=== PATIENT | female | born 1965 | race Caucasian/White ===

== ENCOUNTER → 2016-11-19 | Outpatient (CLI) | payer OTHER ==
--- NOTE | 2016-11-19 15:06 | US ---
EXAMINATION TYPE: US thyroid st tissue head/neck DATE OF EXAM: 11/19/2016 1:51 PM COMPARISON: NONE CLINICAL HISTORY: L04.0 Enlarged Lymph node.Patient noticed swelling on left side of neck under yohana ble this morning. TECHNOLOGIST IMPRESSION: Submandibular gland seen and appears wnl, no obvious lymph nodes were at si te of patients complaint. No worrisome solid or cystic mass or abnormal fluid collection is seen at level palpable abnormality left submandibular region. IMPRESSION: As above.
--- NOTE | 2016-11-20 06:57 | MM ---
Reason for exam: clinical finding. Last mammogram was performed 11 months ago. History: Patient has history of breast cancer at age 48 and is nulliparous. Family history of breast cancer in maternal aunt at age 50 and breast cancer in maternal cousin at age 45. Radiation therapy, June 2014. MG discontinued stereo core RT of the right breast, April 20, 2014. Malignant MG pre op needle loc LT of the left breast, March 13, 2014. Chemotherapy, January 2014. Benign US RT VAD breast biopsy of the right breast, October 31, 2013. Malignant US LT VAD breast biopsy of the left breast, September 12, 2013. Taking tamoxifen beginning at age 48. Physical Findings: Nurse Summary: reddened left breast (nurse dw). MG Diagnostic Mammo w CAD RAGINI Bilateral CC and MLO view(s) were taken. XCCL view(s) were taken of the left breast. Prior study comparison: December 06, 2015, bilateral MG 3d diag mammo w/cad RAGINI. December 04, 2014, bilateral MG diagnostic mammo w CAD RAGINI. There are scattered fibroglandular densities. Finding: Architectural distortion in the upper outer quadrant, posterior position of the left breast with new spiculated lesion. Previous mammotome biopsy in the right breast. Moderate left skin thickening. These results were verbally communicated with the patient and result sheet given to the patient on 11/19/16. ASSESSMENT: Incomplete: need additional imaging evaluation, BI-RAD 0 RECOMMENDATION: Ultrasound of the left breast.
--- NOTE | 2016-11-20 06:58 | USB ---
Reason for exam: additional evaluation requested from abnormal screening. History: Patient has history of breast cancer at age 48 and is nulliparous. Family history of breast cancer in maternal aunt at age 50 and breast cancer in maternal cousin at age 45. Radiation therapy, June 2014. MG discontinued stereo core RT of the right breast, April 20, 2014. Malignant MG pre op needle loc LT of the left breast, March 13, 2014. Chemotherapy, January 2014. Benign US RT VAD breast biopsy of the right breast, October 31, 2013. Malignant US LT VAD breast biopsy of the left breast, September 12, 2013. Taking tamoxifen beginning at age 48. US Breast Limited LT Left breast ultrasound demonstrates a 2.0 x 2.3cm irregular shadowing area at scar at 1 o'clock. These results were verbally communicated with the patient and result sheet given to the patient on 11/19/16. ASSESSMENT: Suspicious, BI-RAD 4 RECOMMENDATION: Surgical consultation and ultrasound core biopsy of the left breast. Called Dr. Mae with mammographic findings and has scheduled an appointment for the patient for 11/21/16 at 10:[address] Mann. PRELIMINARY REPORT CALLED AND FAXED TO DR. MANN ON 11/20/16 AT 700/TP.
== END | disposition home or self-care (01) ==
LOC: RADMAMWWP 13:41
PROVIDERS: ATTEND Family Medicine
DX: R92.2 Inconclusive mammogram (principal); R92.8 Other abnormal and inconclusive findings on diagnostic imaging of breast
CPT/HCPCS: 76536; 76642; G0204; 80053; 80061; 85025; 85652

== ENCOUNTER → 2016-11-21 | Day surgery (SDC) | payer OTHER ==
[~2016-11-21] MED LIST: BACITRACIN OINT 1 EACH PACKET TOPICAL ONE; LIDOCAINE 1% INJ 10MG/ML (20 ML MDV) ONE; SODIUM BICARB 4% 5 ML VIAL (0.48 MEQ/ML) ONE
--- NOTE | 2016-11-21 12:28 | USB ---
EXAMINATION TYPE: US biopsy breast VAD LT, MG diagnostic mammo LT wo CAD DATE OF EXAM: 11/21/2016 10:40 AM CLINICAL HISTORY: R92.8 Abn Mammogram. TECHNIQUE: Ultrasound guided core biopsy of left 1:00 breast. COMPARISON: NONE FINDINGS: The procedure of ultrasound guided core biopsy was explained to the patient. Benefits, alternatives, and risks were discussed. An informed consent was then obtained. The patient was placed in supine positioning for imaging and for the procedure. The overlying skin was prepped and draped in usual sterile fashion. Lidocaine buffered with bicarbonate was used as anesthetic into the skin and subcutaneous tissue up to area of concern in the left 1:00 breast. A chino was made with surgical scalpel. Under ultrasound guidance, a 12-gauge vacuum assisted biopsy gun device was used to obtain by core samples. Following this, a biopsy clip was left in lesion. Mammogram demonstrates proper deployment of microclip. The patient tolerated the procedure well without any immediate complication. The patient was kept in the radiology department for short stay after the procedure and then discharged home in stable condition. IMPRESSION: Successful, uncomplicated ultrasound guided core biopsy of area of concern in the left 1:00 breast, full pathology results to follow. Pathology Results: Benign BREAST, LEFT, CORE BIOPSY: SCAR/FIBROSIS. NEGATIVE FOR MALIGNANCY. Recommendation Follow up mammogram of the left breast in 6 months. SHUKRI
== END ==
LOC: RADUSWWP 09:20
PROVIDERS: ATTEND Surgery
DX: L90.5 Scar conditions and fibrosis of skin (principal); R92.8 Other abnormal and inconclusive findings on diagnostic imaging of breast; Z85.3 Personal history of malignant neoplasm of breast; Z92.21 Personal history of antineoplastic chemotherapy
CPT/HCPCS: 88305; 19083; G0206; A4648; J2001

== ENCOUNTER → 2017-05-18 | Outpatient (CLI) | payer OTHER ==
[2017-05-18 14:46] LABS: Anion Gap 9 mmol/L; Blood Urea Nitrogen 13 mg/dL (7-17); Carbon Dioxide 26 mmol/L (22-30); Chloride 108 mmol/L (98-107); Glucose 83 mg/dL (74-99); Non-African American GFR(MDRD) >60 (>60 ml/min/1.73 sqM); Potassium 4.1 mmol/L (3.5-5.1); Sodium 143 mmol/L (137-145)
[2017-05-18 14:48] LABS: Basophils % (A) 1 %; CH 29.4; CHCM 32.9; Eosinophils # (A) 0.1 k/uL (0-0.7); Eosinophils % (A) 3 %; HCT 38.8 % (34.0-46.0); HGB 12.4 gm/dL (11.4-16.0); Luc # (Auto) 0.14; Luc % (Auto) 3; Lymphocytes # (A) 1.5 k/uL (1.0-4.8); Lymphocytes % (A) 33 %; MCH 28.6 pg (25.0-35.0); MCHC 31.8 g/dL (31.0-37.0); MCV 89.8 fL (80.0-100.0); Mean Platelet Volume 6.9; Monocytes # (A) 0.2 k/uL (0-1.0); Monocytes % (A) 5 %; Neutrophils # (A) 2.4 k/uL (1.3-7.7); Neutrophils % (A) 55 %; RBC 4.33 m/uL (3.80-5.40); RDW 14.5 % (11.5-15.5); WBC 4.3 k/uL (3.8-10.6); WBC (Perox) 4.51
== END | disposition home or self-care (01) ==
LOC: LABPAT 14:05
PROVIDERS: ATTEND Obstetrics & Gynecology
DX: Z01.812 Encounter for preprocedural laboratory examination (principal); N85.01 Benign endometrial hyperplasia; D25.9 Leiomyoma of uterus, unspecified
CPT/HCPCS: 36415; 80051; 82565; 82947; 84520; 85025; 87086

== ENCOUNTER 2017-05-26 06:15 | Inpatient (IN) | payer OTHER ==
[2017-05-18 12:00] VITALS: BMI 32.5
--- NOTE | 2017-05-25 18:16 | HP ---
This is a 51 -year-old white female 0 who has a history of breast cancer followed by Dr. Bland. The patient recently presented to the office for post menopausal bleeding at which time an endometrial biopsy was performed. This revealed simple to complex endometrial hyperplasia without atypia. The patient is on Tamoxifen for her breast cancer. In addition, the uterus was enlarged clinically. Ultrasound revealed multiple uterine fibroids, the largest of which measures 8 cm in diameter. After further consultation, the patient elected to proceed with total abdominal hysterectomy. After discussing this with Dr. Bland, he is recommending bilateral salpingo-oophorectomy as well. I reviewed with the patient in detail, the risks, benefits, and alternatives of this plan. All questions have been answered. PAST MEDICAL HISTORY: Significant for cancer of the left breast. PAST SURGICAL HISTORY: Adenoidectomy and tonsillectomy in 1969. Left breast lumpectomy with lymph node dissection per Dr. Mann in 2013, lymph node resection in 2013. Current medications: 1. Calcium daily. 2. Tamoxifen twice daily. 3. Vitamin B complex daily. 4. Womens one a day vitamin daily. ALLERGIES: INCLUDE PENICILLIN TO WHICH SHE REPORTS HIVES AND A RASH, WELL SEASONAL ALLERGIES. FAMILY HISTORY: Significant for breast cancer of the patients mother. REPRODUCTIVE HISTORY: Menarche began at the age of 14. Last menstrual period October 2013. 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 She admits to social use, has never been a tobacco smoker. REVIEW OF SYSTEMS: Otherwise negative. On exam, this is a pleasant white female, she is 5 feet 7 inches, 220 pounds, blood pressure 120/80. HEENT: Examination reveals good dentition. Clear oropharynx. No obvious cervical lymphadenopathy. Trachea midline. Breast exam reveals normal right breast, no nipple discharge, skin changes, adenopathy or discernible lesions or masses. Left breast has post surgical changes noted. No nipple discharge noted. No obvious adenopathy. Chest is clear to auscultation in all bowser anteriorly and posteriorly. Cardiac exam reveals regular rate and rhythm with no murmur, click or rub. Abdomen is moderately obese, no organomegaly, splenomegaly, no tenderness. Active bowel sounds. Extremities reveal no edema. There are good peripheral pulses noted. Normal range of motion and strength in all four extremities. No edema noted. On pelvic exam, the cervix is nulliparous, firm and small. The uterus is approximately 16 weeks size to palpation. Adnexa are negative to exam. Rectal exam reveals FIT negative, stool, good sphincter tone, no rectal lesions or masses. IMPRESSION: 16 week size fibroid uterus, simple to complex endometrial hyperplasia without atypia, the patient on Tamoxifen. PLAN: As we have discussed in detail, we will proceed with total abdominal hysterectomy, bilateral salpingo-oophorectomy. The risks, benefits and alternatives, of surgery including but not exclusive of bleeding, infection, perforation or damage to bladder, bowel, ureters, blood vessels or indeed any pelvic or abdominal organs have all been discussed. A second opinion has been offered and declined. The risks of anesthesia to include aspiration, nerve damage, or even have all been reviewed. All questions were answered. I believe the patient understands the above discussion with no reservation. Risks of bleeding and infection are also discussed, along with possible but unlikely need for blood transfusion and the infectious disease to which she would be exposed. SHUKRI
[~2017-05-26 06:15] MED LIST changes: -BACITRACIN OINT 1 EACH PACKET TOPICAL ONE; +DEXAMETHASONE SOD PHOSPHATE 10 MG/ML 1 ML VIAL IV ONE; +HYDROmorphone 1 MG/ML 1 ML SYRINGE IVP PRN; +LACTATED RINGERS 1,000 ML IV SCH; +LIDOCAINE 1% 20 ML VIAL (10MG/ML) FOR IV START INTRADERMA PRN; -LIDOCAINE 1% INJ 10MG/ML (20 ML MDV) ONE; +ONDANSETRON 4 MG/2 ML VIAL IVP ONE; +SCOPOLAMINE 1.5MG/72HR PATCH TRANSDERM ONE; -SODIUM BICARB 4% 5 ML VIAL (0.48 MEQ/ML) ONE; +ceFAZolin 2 GM in SODIUM CHLORIDE 0.9% 100 ML IVPB ONE
[2017-05-26] MEDS ORDERED: PROPOFOL 10 MG/ML 20 ML VIAL IV ONE (07:29)
[2017-05-26] MEDS ORDERED: SUCCINYLCHOLINE CHLORIDE 100 MG/5 ML SYR IV ONE (07:29)
[2017-05-26] MEDS ORDERED: fentaNYL (PF) 50 MCG/ML 2 ML AMP ONE (07:29)
[2017-05-26] MEDS ORDERED: GLYCOPYRROLATE 0.2 MG/ML 2 ML VIAL ONE (07:29)
[2017-05-26] MEDS ORDERED: NEOSTIGMINE 1 MG/ML 10 ML VIAL ONE (07:29)
[2017-05-26] MEDS ORDERED: MIDAZOLAM 2 MG/2 ML VIAL ONE (07:29)
[2017-05-26] MEDS ORDERED: ROCURONIUM BROMIDE 10 MG/ML 10 ML VIAL IV ONE (07:29)
[2017-05-26] MEDS ORDERED: LIDOCAINE 1% INJ 10MG/ML (20 ML MDV) ONE (07:29)
[2017-05-26] MEDS ORDERED: METOCLOPRAMIDE 5 MG/ML 2 ML VIAL IVP PRN (08:46)
[2017-05-26] MEDS ORDERED: SIMETHICONE 80 MG CHEWABLE PO PRN (08:46)
[2017-05-26] MEDS ORDERED: diphenhydrAMINE 50 MG/ML 1 ML VIAL IVP PRN (08:46)
[2017-05-26] MEDS ORDERED: ZOLPIDEM 5 MG TAB PO PRN (08:46)
[2017-05-26] MEDS ORDERED: ONDANSETRON 4 MG/2 ML VIAL IVP PRN (08:46)
[2017-05-26] MEDS ORDERED: Acetaminophen-Codeine 300-30mg TAB PO PRN (08:46)
[2017-05-26] MEDS ORDERED: IBUPROFEN 600 MG TAB PO PRN (08:46)
--- NOTE | 2017-05-26 08:46 | P.OP ---
Date of Procedure: 05/26/17 Preoperative Diagnosis: Enlarged fibroid uterus, complex endometrial hyperplasia, history of breast cancer Postoperative Diagnosis: Pathology pending Procedure(s) Performed: Total abdominal hysterectomy, bilateral salpingo-oophorectomy. Implants: Anesthesia: FLORENCEA Surgeon: Sherri Camacho Wire Rigger #1: Turner Schafer Estimated Blood Loss (ml): 50 IV fluids (ml): 700 Urine output (ml): 50 Pathology: other (Bilateral ovaries and tubes, cervix and uterus.) Condition: stable Disposition: PACU Indications for Procedure: Operative Findings: Description of Procedure: Patient is brought to the operating room after a spinal with Duramorph is placed. She is put in the dorsal lithotomy position. General anesthetic is administered without difficulty. The cervix, vagina, perineum, and abdomen are all prepped and draped in usual sterile fashion. The appropriate timeout was performed to assure proper patient and procedural identification. Urine hCG is negative. Antibiotics are given. A low transverse skin incision is made in this is carried down through the subcutaneous tissue which is approximately 6-8 cm deep. Fascia is isolated and scored, extended bilaterally with curved Medina scissors. The peritoneum is next identified and incised, there is no bowel or bladder involvement. The O'Misael- O'Chaney retractor is placed and with sterile sponges the abdomen is packed well from the operative field. The uterus is noted to be enlarged and bulky, with a pedunculated 7 cm fibroid anteriorly. This is grasped across the base with a Codie clamp and removed for better visualization. Round ligaments are identified, clamped cut and suture ligated. Metzenbaum scissors are used to develop the bladder flap and at all times the bladder is Well from the operative field to avoid bladder and/or ureteral injury. The infundibulopelvic ligaments are identified, clamped cut and suture ligated. I lateral tubes and ovaries are removed. Skeletonization is then performed, uterine vasculature is identified, clamped cut and suture ligated. Please note that 0 Vicryl suture is used for the entire hysterectomy procedure. Again bladder is Well from the operative field. 2 additional pedicles are taken across the uterosacral cardinal ligament complex these. The uterus is removed and the cervix is noted to be intact. The vaginal cough is closed with 0 Vicryl suture in a running fashion. Irrigation is now used in the pelvis is inspected, noted to be clean and dry in all planes. All vascular pedicles are clean and dry. The peritoneum was allowed to close by secondary intention. The fascia is closed in a running stitch of 0 Vicryl with over ligation in the midline. Subcutaneous tissue was again irrigated, noted to be clean and dry. It is reapproximated in a running fashion with 3-0 Vicryl. 4-0 undyed Vicryl is used in a subcuticular manner for final skin closure. Steri-Strips and Mastisol are applied to the wound. Vagina is clean and dry. Johnson is noted to be draining clear urine in the tube. All sponge needle and enhancement counts are correct at the end of the procedure. Patient is brought back to the recovery room in very good condition with stable vital signs including a pulse of 70, blood pressure 104/70.
[2017-05-26] MEDS ORDERED: NALBUPHINE 10 MG/ML AMPUL IV PRN (09:49)
[2017-05-26] MEDS ORDERED: PROMETHAZINE INJ 6.25 MG in SODIUM CHLORIDE 0.9% 50 ML IVPB PRN (09:49)
[2017-05-26] MEDS ORDERED: MORPHINE SULFATE 4 MG/ML SYRINGE IVP PRN (09:49)
[2017-05-26] MEDS ORDERED: NALOXONE 0.4 MG/ML 1 ML VIAL IV PRN (09:49)
[2017-05-26] MEDS: KETOROLAC 30 MG/ML 1 ML VIAL IVP PRN (21:18)
[2017-05-27] MEDS: KETOROLAC 30 MG/ML 1 ML VIAL IVP PRN (06:32)
--- NOTE | 2017-05-27 07:23 | P.PN ---
Progress Note - Text Date: 05/27/2017 Time: 07 The patient is status post, total abdominal hysterectomy. Postoperative day #1. Vital signs stable VAS: 0-10 Patient has no complaints of pain. The patient incurred some minimal itching yesterday, this itching is now subsiding. Pain meds to be managed by service.
--- NOTE | 2017-05-27 08:02 | P.DS ---
Providers Date of admission: 05/26/17 06:15 Expected date of discharge: 05/27/17 Attending physician: Sherri Camacho Primary care physician: Stated None Hospital Course: This is a 51-year-old white female who presented with postmenopausal bleeding. Endometrial biopsy revealed complex endometrial hyperplasia without atypia. In addition, she was noted to have large uterine fibroids, 16 week size uterus clinically. Patient is followed with Dr. Bland for her history of breast cancer. After consultation decision was made to proceed with WILLIAM/BSO. Please see my dictated history and physical for details. Patient underwent this procedure under my care yesterday at [facility]. She did well intraoperatively. A low transverse incision was made in the skin and Steri-Strips and Mastisol were applied. Surgery was unremarkable, please see dictated operative note for details. Pathology pending at the time of this dictation. This morning the patient appears well. She is experiencing good pain control as a result of her spinal with Duramorph. The incision is clean and dry, intact. There is only scant vaginal bleeding. Johnson is draining clear urine. Vital signs are stable and she has remained afebrile. There is no CVA tenderness, extremities are negative, chest is clear. Plan is to discontinue Johnson and IV. We will advance her diet upon passage of flatus. If she is tolerating regular food and feels steady on her feet she will be discharged home later today. I will see her in the office in 2 weeks for an incision check. I have reminded her no intercourse, tampons or douching. She will use [id number] Motrin products as needed for pain, 200 mg pills, 3 every 6 hours as needed. I've asked her to call me with any fevers shakes or chills, foul smelling or copious vaginal drainage, with any redness or drainage of the abdominal incision, with any issues breathing or with pain relief, or indeed with any concerns. No driving for 2 weeks, no heavy lifting, limited stairs. Patient Condition at Discharge: Good Plan - Discharge Summary New Discharge Prescriptions: No Action Tamoxifen [Nolvadex] 20 mg PO DAILY Multivit with Calcium,Iron,Min [Women's Daily Multivitamin] 1 tab PO DAILY Calcium Carbonate/Vitamin D3 [Calcium 600 + Vit D Tablet] 1 tab PO DAILY Discharge Medication List Calcium Carbonate/Vitamin D3 [Calcium 600 + Vit D Tablet] 1 tab PO DAILY [History] Multivit with Calcium,Iron,Min [Women's Daily Multivitamin] 1 tab PO DAILY 11/02 [History] Tamoxifen [Nolvadex] 20 mg PO DAILY 11/02/14 [History] Follow up Appointment(s)/Referral(s): Sherri Camacho MD [STAFF PHYSICIAN] - 2 Weeks Patient Instructions/Handouts: Hysterectomy (DC)
[2017-05-27 08:04] VITALS: RESP 16
[2017-05-27] MEDS ORDERED: ACETAMINOPHEN TAB 325 MG TAB PO PRN (08:47)
[2017-05-27 12:13] VITALS: BP 112/68; PULSE 63; TEMP 97.1
== END 2017-05-27 18:31 | disposition home or self-care (01) | DRG 743 ==
LOC: 2ORWHC 06:15 → 6PED 08:58
PROVIDERS: ADMIT Obstetrics & Gynecology; ATTEND Obstetrics & Gynecology
PROC: 0UTC0ZZ Resection of Cervix, Open Approach (ICD-10-PCS; 2017-05-26)
PROC: 0UT20ZZ Resection of Bilateral Ovaries, Open Approach (ICD-10-PCS; 2017-05-26)
PROC: 0UT70ZZ Resection of Bilateral Fallopian Tubes, Open Approach (ICD-10-PCS; 2017-05-26)
PROC: 0UT90ZZ Resection of Uterus, Open Approach (ICD-10-PCS; principal; 2017-05-26 07:30)
DX: N85.01 Benign endometrial hyperplasia (principal); D25.9 Leiomyoma of uterus, unspecified; Z85.3 Personal history of malignant neoplasm of breast; N95.0 Postmenopausal bleeding; Z79.810 Long term (current) use of selective estrogen receptor modulators (SERMs); Z79.899 Other long term (current) drug therapy
CPT/HCPCS: 81025; 86850; 86900; 86901; 88307; 88341; 88342

== ENCOUNTER 2017-06-23 23:59 | Emergency (ER) | payer OTHER ==
[2017-06-24] MEDS ORDERED: SODIUM CHLORIDE 0.9% 500 ML IV STA (00:34)
[2017-06-24 00:49] LABS: Basophils % (A) 0 %; CH 29.1; CHCM 33.2; Eosinophils # (A) 0.2 k/uL (0-0.7); Eosinophils % (A) 3 %; HCT 37.2 % (34.0-46.0); HDW 2.61; HGB 11.9 gm/dL (11.4-16.0); Luc # (Auto) 0.13; Luc % (Auto) 2; Lymphocytes # (A) 1.8 k/uL (1.0-4.8); Lymphocytes % (A) 31 %; MCH 28.3 pg (25.0-35.0); MCHC 32.1 g/dL (31.0-37.0); MCV 88.1 fL (80.0-100.0); Mean Platelet Volume 6.9; Monocytes # (A) 0.3 k/uL (0-1.0); Monocytes % (A) 5 %; Neutrophils # (A) 3.6 k/uL (1.3-7.7); Neutrophils % (A) 59 %; RBC 4.22 m/uL (3.80-5.40); WBC (Perox) 6.25
--- NOTE | 2017-06-24 00:54 | ED ---
General Adult HPI - General Chief complaint: Seizure Stated complaint: Seizure Time Seen by Provider: 06/24/17 00:00 Source: EMS, RN notes reviewed Mode of arrival: EMS Limitations: no limitations - History of Present Illness Initial comments: This is a 51-year-old female who presents to the emergency department after having had a possible seizure. Patient has no history of seizures. 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 Patient's significant other stated that she was shaking on the ground for about 10 seconds when he heard her fall and she didn't come around Johnson until she was in the ambulance. Patient has a large hematoma on the left side of the forehead and a small puncture wound on the left upper eyelid. Patient states she is up-to-date on tetanus. Patient denies any neck pain. Patient denies any headache. Patient states prior to the incident she had no palpitations no chest pain or difficulty breathing or shortness of breath. Patient states she did have a hysterectomy about one month ago. Patient has no calf pain or leg swelling. Patient denies any abdominal pain patient denies nausea vomiting diarrhea. Patient states currently she has no complaint except for the pain above her left eye where the hematoma is. - Related Data Home Medications Medication Instructions Recorded Confirmed Calcium Carbonate/Vitamin D3 1 tab PO DAILY 11/02/14 05/26/17 [Calcium 600 + Vit D Tablet] Multivit with Calcium,Iron,Min 1 tab PO DAILY 11/02/14 05/26/17 [Women's Daily Multivitamin] Tamoxifen [Nolvadex] 20 mg PO DAILY 11/02/14 05/26/17 Allergies Allergy/AdvReac Type Severity Reaction Status Date / Time tree nut [Tree Nut] Allergy Severe Anaphylaxis Verified 06/24/17 00:05 Fish Containing Products Allergy Swelling Verified 06/24/17 00:05 Review of Systems ROS Statement: Those systems with pertinent positive or pertinent negative responses have been documented in the HPI. ROS Other: All systems not noted in ROS Statement are negative. Past Medical History Past Medical History: Cancer, Skin Disorder Additional Past Medical History / Comment(s): "HEART REGURGITATION", BREAST CANCER, eczema, "occular migraines" History of Any Multi-Drug Resistant Organisms: None Reported Past Surgical History: Adenoidectomy, Breast Surgery, Tonsillectomy Additional Past Surgical History / Comment(s): MEDIPORT/later removed, left breast lumpectomy w/axillary lymph node dissection, follow up lumpectomy to remove more tissue Past Anesthesia/Blood Transfusion Reactions: Motion Sickness, Motion Sickness Past Psychological History: No Psychological Hx Reported Smoking Status: Never smoker Past Alcohol Use History: Occasional Past Drug Use History: None Reported - Past Family History Mother Family Medical History: No Reported History General Exam - General Exam Comments Initial Comments: GENERAL: Patient is well-developed and well-nourished. Patient is nontoxic and well- hydrated and is in mild distress. ENT: Neck is soft and supple. No significant lymphadenopathy is noted. Oropharynx is clear. Moist mucous membranes. Neck has full range of motion without eliciting any pain. Patient has a large hematoma left side of the forehead. EYES: The sclera were anicteric and conjunctiva were pink and moist. Extraocular movements were intact and pupils were equal round and reactive to light. Eyelids were unremarkable. PULMONARY: Unlabored respirations. Good breath sounds bilaterally. No audible rales rhonchi or wheezing was noted. CARDIOVASCULAR: There is a regular rate and rhythm without any murmurs gallops or rubs. ABDOMEN: Soft and nontender with normal bowel sounds. No palpable organomegaly was noted. There is no palpable pulsatile mass. SKIN: Patient has a small puncture wound just above the left eyelid. NEUROLOGIC: Patient is alert and oriented x3. Cranial nerves II through XII are grossly intact. Motor and sensory are also intact. Normal speech, volume and content. Symmetrical smile. MUSCULOSKELETAL: Normal extremities with adequate strength and full range of motion. Patient has some right elbow tenderness. LYMPHATICS: No significant lymphadenopathy is noted PSYCHIATRIC: Normal psychiatric evaluation. Limitations: no limitations Course Vital Signs 06/24/17 06/24/17 06/24/17 00:00 00:58 01:36 Temperature 98.7 F 98.3 F Pulse Rate 117 H 101 H 103 H Respiratory 18 18 18 Rate Blood Pressure 116/71 111/73 118/71 O2 Sat by Pulse 94 L 96 98 Oximetry 06/24/17 02:36 Temperature 98.9 F Pulse Rate 97 Respiratory 18 Rate Blood Pressure 119/65 O2 Sat by Pulse 94 L Oximetry Medical Decision Making - Medical Decision Making EKG shows sinus tachycardia at 117 bpm AR interval 272 QRS is 92 QT interval 322 QTC is 447. Patient's EKG shows no ST segment elevation or depression or T wave abnormalities are noted. CT of the brain showed a large heterogeneous left frontal lobe mass with adjacent bifrontal edema there is also associated rightward midline shift approximately 3 mm there is also expansile left frontal bone lesion. I gave the patient some Decadron and gave the patient loading dose of Dilantin 1000 mg. - Lab Data Result diagrams: 06/24/17 00:05 06/24/17 00:05 Lab Results 06/24/17 06/24/17 06/24/17 Range/Units 00:05 00:05 00:05 WBC 6.0 (3.8-10.6) k/uL RBC 4.22 (3.80-5.40) m/uL Hgb 11.9 (11.4-16.0) gm/dL Hct 37.2 (34.0-46.0) % MCV 88.1 (80.0-100.0) fL MCH 28.3 (25.0-35.0) pg MCHC 32.1 (31.0-37.0) g/dL RDW 15.0 (11.5-15.5) % Plt Count 273 (150-450) k/uL Neutrophils % 59 % Lymphocytes % 31 % Monocytes % 5 % Eosinophils % 3 % Basophils % 0 % Neutrophils # 3.6 (1.3-7.7) k/uL Lymphocytes # 1.8 (1.0-4.8) k/uL Monocytes # 0.3 (0-1.0) k/uL Eosinophils # 0.2 (0-0.7) k/uL Basophils # 0.0 (0-0.2) k/uL PT (9.0-12.0) sec INR (<1.2) APTT (22.0-30.0) sec D-Dimer (<0.60) mg/L FEU Sodium 142 (137-145) mmol/L Potassium 3.8 (3.5-5.1) mmol/L Chloride 108 H (98-107) mmol/L Carbon Dioxide 23 (22-30) mmol/L Anion Gap 11 mmol/L BUN 14 (7-17) mg/dL Creatinine 1.00 (0.52-1.04) mg/dL Est GFR (MDRD) Af Amer >60 (>60 ml/min/1.73 sqM) Est GFR (MDRD) Non-Af 58 (>60 ml/min/1.73 sqM) Glucose 112 H (74-99) mg/dL Calcium 9.5 (8.4-10.2) mg/dL Magnesium 1.9 (1.6-2.3) mg/dL Total Bilirubin 0.2 (0.2-1.3) mg/dL AST 23 (14-36) U/L ALT 36 (9-52) U/L Alkaline Phosphatase 93 (38-126) U/L Total Creatine Kinase 99 (30-135) U/L CK-MB (CK-2) 0.9 (0.0-2.4) ng/mL CK-MB (CK-2) Rel Index 0.9 Troponin I <0.012 (0.000-0.034) ng/mL Total Protein 6.7 (6.3-8.2) g/dL Albumin 3.9 (3.5-5.0) g/dL Urine Color Urine Appearance (Clear) Urine pH (5.0-8.0) Ur Specific Ringoes (1.001-1.035) Urine Protein (Negative) Urine Glucose (UA) (Negative) Urine Ketones (Negative) Urine Blood (Negative) Urine Nitrite (Negative) Urine Bilirubin (Negative) Urine Urobilinogen (<2.0) mg/dL Ur Leukocyte Esterase (Negative) Urine RBC (0-5) /hpf Urine WBC (0-5) /hpf Ur Squamous Epith Cells (0-4) /hpf Granular Casts (0) /lpf Urine Mucus (None) /hpf 06/24/17 06/24/17 Range/Units 00:05 02:30 WBC (3.8-10.6) k/uL RBC (3.80-5.40) m/uL Hgb (11.4-16.0) gm/dL Hct (34.0-46.0) % MCV (80.0-100.0) fL MCH (25.0-35.0) pg MCHC (31.0-37.0) g/dL RDW (11.5-15.5) % Plt Count (150-450) k/uL Neutrophils % % Lymphocytes % % Monocytes % % Eosinophils % % Basophils % % Neutrophils # (1.3-7.7) k/uL Lymphocytes # (1.0-4.8) k/uL Monocytes # (0-1.0) k/uL Eosinophils # (0-0.7) k/uL Basophils # (0-0.2) k/uL PT 10.4 (9.0-12.0) sec INR 1.0 (<1.2) APTT 19.1 L (22.0-30.0) sec D-Dimer 7.27 H (<0.60) mg/L FEU Sodium (137-145) mmol/L Potassium (3.5-5.1) mmol/L Chloride (98-107) mmol/L Carbon Dioxide (22-30) mmol/L Anion Gap mmol/L BUN (7-17) mg/dL Creatinine (0.52-1.04) mg/dL Est GFR (MDRD) Af Amer (>60 ml/min/1.73 sqM) Est GFR (MDRD) Non-Af (>60 ml/min/1.73 sqM) Glucose (74-99) mg/dL Calcium (8.4-10.2) mg/dL Magnesium (1.6-2.3) mg/dL Total Bilirubin (0.2-1.3) mg/dL AST (14-36) U/L ALT (9-52) U/L Alkaline Phosphatase (38-126) U/L Total Creatine Kinase (30-135) U/L CK-MB (CK-2) (0.0-2.4) ng/mL CK-MB (CK-2) Rel Index Troponin I (0.000-0.034) ng/mL Total Protein (6.3-8.2) g/dL Albumin (3.5-5.0) g/dL Urine Color Yellow Urine Appearance Cloudy H (Clear) Urine pH 5.5 (5.0-8.0) Ur Specific Ringoes 1.024 (1.001-1.035) Urine Protein 1+ H (Negative) Urine Glucose (UA) Negative (Negative) Urine Ketones 1+ H (Negative) Urine Blood Negative (Negative) Urine Nitrite Negative (Negative) Urine Bilirubin Negative (Negative) Urine Urobilinogen <2.0 (<2.0) mg/dL Ur Leukocyte Esterase Negative (Negative) Urine RBC 1 (0-5) /hpf Urine WBC 2 (0-5) /hpf Ur Squamous Epith Cells 10 H (0-4) /hpf Granular Casts 3 (0) /lpf Urine Mucus Occasional H (None) /hpf Disposition Clinical Impression: New onset seizure, Intracranial mass Disposition: OTHER INSTITUTION NOT DEFINED Referrals: None,Stated [REFERRING] - 1-2 days Time of Disposition: 02:46 - Out of Hospital Transfer - Req. Specs Out of Hospital Transfer - Requested Specifics: Other Emergency Center ( [facility])
[2017-06-24 00:57] LABS: ALT 36 U/L (9-52); AST 23 U/L (14-36); Alkaline Phosphatase 93 U/L (38-126); Anion Gap 11 mmol/L; Blood Urea Nitrogen 14 mg/dL (7-17); Calcium 9.5 mg/dL (8.4-10.2); Carbon Dioxide 23 mmol/L (22-30); Chloride 108 mmol/L (98-107); Glucose 112 mg/dL (74-99); Magnesium 1.9 mg/dL (1.6-2.3); Non-African American GFR(MDRD) 58 (>60 ml/min/1.73 sqM); Potassium 3.8 mmol/L (3.5-5.1); Sodium 142 mmol/L (137-145); Total Bilirubin 0.2 mg/dL (0.2-1.3); Total Protein 6.7 g/dL (6.3-8.2)
[2017-06-24 01:12] LABS: Prothrombin Time 10.4 sec (9.0-12.0)
[2017-06-24 01:17] LABS: Creatine Kinase 99 U/L (30-135)
[2017-06-24 01:30] LABS: Creatine Kinase MB 0.9 ng/mL (0.0-2.4); Troponin I <0.012 ng/mL (0.000-0.034)
[2017-06-24 02:00] LABS: Partial Thromboplastin Time 19.1 sec (22.0-30.0)
--- NOTE | 2017-06-24 02:31 | CT ---
EXAM: CT Head Without Intravenous Contrast CLINICAL HISTORY: Pain. Seizure. Fall onto frontal/forehead area. TECHNIQUE: Axial computed tomography images of the head/brain without intravenous contrast. Coronal and sagittal reformations provided. CTDI is 57.40 mGy and DLP is 1081.60 mGy-cm. This CT exam was performed using one or more of the following dose reduction techniques: automated exposure control, adjustment of the mA and/or kV according to patient size, and/or use of iterative reconstruction technique. COMPARISON: No relevant prior studies available. FINDINGS: Brain: Large heterogeneous left frontal lobe mass with adjacent bifrontal edema (L>R). There is local mass effect with mild rightward midline shift measuring approximately 3 mm at foramen of Monro. No evidence of acute intracranial hemorrhage. No obvious acute territorial infarct. Ventricles: Mass effect on the frontal horns of the lateral ventricles (L>R). No ventriculomegaly. Bones/joints: Expansile left frontal bone lesion adjacent to previously mentioned left frontal mass with associated cortical thinning with extension into the left frontal sinus and superior left orbit. No evidence of skull fracture. Soft tissues: Left frontal scalp/forehead and left supraorbital soft tissue swelling. Sinuses: Opacities in the maxillary sinuses and left frontal sinus. Left frontal sinus opacity is contiguous with aforementioned frontal bone lesion. Mastoid air cells: Unremarkable as visualized. No mastoid effusion. IMPRESSION: 1. Large heterogeneous left frontal lobe mass with adjacent bifrontal edema (L>R). There is associated mass effect with mild rightward midline shift measuring approximately 3 mm at the foramen of Monro. Findings are suspicious for neoplastic or metastatic process. Recommend clinical correlation and MRI with and without contrast for further evaluation. 2. Expansile left frontal bone lesion adjacent to aforementioned left frontal intracranial mass with associated cortical thinning and extension into the left frontal sinus and left superior orbit. Metastatic lesion is favored with other neoplastic processes not excluded. Recommend clinical correlation and MRI with and without contrast to further assess. 3. Left forehead/scalp soft tissue swelling which may be related to extension of mass into soft tissues and/or superimposed trauma. No evidence of skull fracture or acute intracranial hemorrhage. [employer] 06/24/17 02:40 Verify Receipt Verified receipt with SONIA Banks, given to Dr. Dutton on 06/24 02:39 (-04:00)
[2017-06-24] MEDS ORDERED: PHENYTOIN SODIUM INJ 1,000 MG in SODIUM CHLORIDE 0.9% 100 ML IVPB STA (02:38)
[2017-06-24] MEDS ORDERED: DEXAMETHASONE SOD PHOSPHATE 10 MG/ML 1 ML VIAL IV STA (02:38)
[2017-06-24 02:43] LABS: Appearance,Urine Cloudy (Clear); Bilirubin,Urine Negative (Negative); Glucose,Urine (UA) Negative (Negative); Granular Casts,Urine 3 /lpf (0); Ketones,Urine 1+ (Negative); Leukocyte Esterase,Urine Negative (Negative); Mucus,Urine Occasional /hpf; Nitrite,Urine Negative (Negative); PH, Urine 5.5 (5.0-8.0); Particle Count 7044; Protein,Urine 1+ (Negative); RBC,Urine 1 /hpf (0-5); Specific Gravity,Urine 1.024 (1.001-1.035); Squamous Epithelial Cell,Urine 10 /hpf (0-4); UA Billing (MACRO vs. MICRO) MICRO; Urobilinogen,Urine <2.0 mg/dL (<2.0); WBC,Urine 2 /hpf (0-5)
--- NOTE | 2017-06-24 02:45 | XR ---
EXAM: XR Chest, 2 Views CLINICAL HISTORY: Syncope. TECHNIQUE: Frontal and lateral views of the chest. COMPARISON: CXR dated 10/10/2013. FINDINGS: Lungs: Suspect mild basilar atelectasis. No evidence of focal consolidation or pulmonary edema. Pleural space: No significant pleural effusion or pneumothorax. Heart: Stable cardiac silhouette size, within normal limits. Mediastinum: Unremarkable. Bones/joints: Rounded lucency projecting in the right humeral head. Otherwise stable osseous structures. Soft tissues: Interval removal of right chest wall port. Upper abdomen: Mild elevation of the left hemidiaphragm, stable. IMPRESSION: 1. Stable elevation of left hemidiaphragm and suspected mild basilar atelectasis. No evidence of focal consolidation, pulmonary edema, pleural effusion or pneumothorax. 2. Rounded lucency projecting at the right proximal humerus. Osseous lesion not excluded. 3. Interval removal of right chest wall Port-A-Cath compared to CXR dated 10/10/2013.
--- NOTE | 2017-06-24 02:47 | XR ---
EXAM: XR Right Elbow Complete, 3 Views CLINICAL HISTORY: Pain. TECHNIQUE: Frontal, lateral and oblique views of the right elbow. COMPARISON: No relevant prior studies available. FINDINGS: Bones/joints: No evidence of acute fracture. No dislocation. Soft tissues: No significant soft tissue abnormality. Right antecubital fossa IV noted. IMPRESSION: No radiographic evidence of acute fracture or dislocation of the right elbow.
[2017-06-24 03:26] VITALS: BP 123/64; PULSE 96; RESP 20
[2017-06-24 03:49] VITALS: TEMP 97.8
== END 2017-06-24 03:54 | disposition other institution (70) ==
LOC: EC 23:59
DX: R56.9 Unspecified convulsions (principal); G93.9 Disorder of brain, unspecified; S00.83XA Contusion of other part of head, initial encounter; S01.132A Puncture wound without foreign body of left eyelid and periocular area, initial encounter; Z85.3 Personal history of malignant neoplasm of breast; Z79.899 Other long term (current) drug therapy; Z91.018 Allergy to other foods; Z91.013 Allergy to seafood
CPT/HCPCS: 36415; 93005; 85379; 80053; 82550; 82553; 83735; 84484; 85025; 85610; 85730; 81001; 71020; 73080; 70450; 99285; 96365; 96375; 96361 ×2; J1165; J1100

== ENCOUNTER 2017-10-14 08:19 | Day surgery (SDC) | payer OTHER ==
[2017-10-13 11:10] VITALS: BMI 30.4
[~2017-10-14 08:19] MED LIST changes: -DEXAMETHASONE SOD PHOSPHATE 10 MG/ML 1 ML VIAL IV ONE; -HYDROmorphone 1 MG/ML 1 ML SYRINGE IVP PRN; +LACTATED RINGERS 1,000 ML IV ONE; -LACTATED RINGERS 1,000 ML IV SCH; -ONDANSETRON 4 MG/2 ML VIAL IVP ONE; +Pre Op ABX Message 1 EACH MISC MISCELLANE ONE; -SCOPOLAMINE 1.5MG/72HR PATCH TRANSDERM ONE; -ceFAZolin 2 GM in SODIUM CHLORIDE 0.9% 100 ML IVPB ONE
[2017-10-14] MEDS ORDERED: ONDANSETRON 4 MG/2 ML VIAL IVP ONE (09:29)
[2017-10-14] MEDS ORDERED: SCOPOLAMINE 1.5MG/72HR PATCH TRANSDERM ONE (09:29)
[2017-10-14] MEDS ORDERED: DEXAMETHASONE SOD PHOS (MDV) 100 MG/10 ML VIAL IV ONE (09:33)
[2017-10-14 09:38] VITALS: TEMP 97.5
[2017-10-14] MEDS ORDERED: ceFAZolin 1,000 MG in DEXTROSE/WATER 1 50ML.BAG IVPB STA (10:35)
[2017-10-14] MEDS ORDERED: PROPOFOL 10 MG/ML 20 ML VIAL IV ONE (10:56)
[2017-10-14] MEDS ORDERED: fentaNYL (PF) 50 MCG/ML 2 ML AMP ONE (10:56)
[2017-10-14] MEDS ORDERED: MIDAZOLAM 2 MG/2 ML VIAL ONE (10:56)
[2017-10-14] MEDS ORDERED: BUPIVACAINE-EPI 0.5%-1:200,000 10 ML VIAL SQ ONE (11:41)
--- NOTE | 2017-10-14 12:26 | FL ---
EXAMINATION TYPE: FL guided central line placement DATE OF EXAM: 10/14/2017 CLINICAL HISTORY: Fluoroscopic guided central line placement. TECHNIQUE: Fluoroscopy. COMPARISON: None. FINDINGS: Fluoroscopic guidance was provided during procedure performed by Dr. Mann. A total of 11 seconds of fluoroscopic time was utilized during the procedure and 1 spot images was acquired dur ing the insertion of a right-sided Mediport.
[2017-10-14 13:07] VITALS: BP 124/82; PULSE 93; RESP 16
--- NOTE | 2017-10-14 13:49 | P.OP ---
Date of Procedure: 10/14/17 Preoperative Diagnosis: Stage IV breast cancer with metastasis to the bone and brain Postoperative Diagnosis: Same Procedure(s) Performed: Right internal jugular 8-[place] Mediport placement under fluoroscopic and SonoSite guidance Excision of right gluteal skin lesion 1 cm x 1 cm Implants: 8F Xcela Port Anesthesia: MAC, local Surgeon: Roselyn Mann Pathology: other Condition: stable Disposition: PACU Indications for Procedure: 52 years old female presents with metastatic breast cancer. Informed consent obtained and patient elected to undergo right internal jugular Mediport placement and excision of tender right gluteal skin lesion Description of Procedure: The patient was brought to the operating room and placed in lateral decubitus position. The right gluteal area was prepped with Betadine. Sterile drapes applied. A timeout performed. 1 x 1 cm elliptical skin incision was made to excise the skin lesion which was full-thickness. Hemostasis was checked. The area was closed with interrupted sutures of 2-0 nylon. Patient was placed supine with both arms tucked. A footboard was placed. Chlorhexidine was used to prep the neck followed by application of sterile drapes and an [place] dressing . A timeout was performed to verify correct patient and correct procedure. Patient was confirmed to receive perioperative IV antibiotics and VTE prophylaxis. An ultrasound was performed of the right neck to identify the carotid artery and internal jugular vein. The internal jugular vein was compressible and patent . Photodocumentation was made. Local anesthetic was infiltrated to create a field block. Seldinger technique was used and the internal jugular vein was accessed under direct ultrasound guidance. There was good backflow of dark venous blood. The guidewire was inserted and fluoroscopic images obtained to confirm the tip in SVC. The needle was removed followed by insertion of a dilator peel-away sheath. Local anesthetic was infiltrated along the inferior aspect of the right clavicle. A 2.5 cm skin incision was made and dissection was carried up to the pectoralis major muscle. A pocket was created for the port. The catheter tubing was connected to the port using the conector after flushing both the port and the catheter with normal saline. The tunneling device was connected to the end of the catheter and after placement of the port in the subcutaneous pocket the tunneling device was passed from the lower incision to the counter incision in the neck. The catheter was measured at the junction of SVC and right atrium. The inner cannula of the peel-away sheath was removed and catheter was gradually inserted. The peel-away sheath was gradually removed. Fluoroscopic image confirmed the tip of the catheter at the junction of SVC and right atrium. There was no kink, fold or torsion of the catheter and the port. The Burris needle was used to access the port and easy backflow was obtained. This was flushed with 10 mL of normal saline and 10 mL of Hep-Lock was inserted. The skin incision was closed in 3 layers using 3-0 Vicryl interrupted stitches and a running suture of 4-0 Monocryl. Counter incision in the neck was also closed using 3-0 Vicryl followed by 4-0 Monocryl. Dermabond skin glue was applied followed by Telfa and Tegaderm dressing. The sponge, instrument and needle count were correct -2 Patient tolerated the procedure well and was taken to post anesthesia care unit in stable condition Total fluoroscopic time was 11 seconds
== END 2017-10-14 13:50 | disposition home health service (06) ==
LOC: OR 08:19
PROVIDERS: ATTEND Surgery
DX: C50.919 Malignant neoplasm of unspecified site of unspecified female breast (principal); C79.51 Secondary malignant neoplasm of bone; C79.31 Secondary malignant neoplasm of brain; D22.5 Melanocytic nevi of trunk; Z80.3 Family history of malignant neoplasm of breast; I38 Endocarditis, valve unspecified; G40.909 Epilepsy, unspecified, not intractable, without status epilepticus; K21.9 Gastro-esophageal reflux disease without esophagitis; Z79.811 Long term (current) use of aromatase inhibitors; Z79.899 Other long term (current) drug therapy; Z79.810 Long term (current) use of selective estrogen receptor modulators (SERMs); Z88.0 Allergy status to penicillin
CPT/HCPCS: 11401; 36561; 76937; 88305; 77001; C1788; J2250; J2405; J3010; J0690; J1100; J2704

== ENCOUNTER → 2017-11-26 | Outpatient (CLI) | payer OTHER ==
[2017-11-26 14:08] LABS: Blood Urea Nitrogen 13 mg/dL (7-17)
--- NOTE | 2017-11-26 15:43 | CT ---
EXAMINATION TYPE: CT ChestAbdPelvis w con DATE OF EXAM: 11/26/2017 COMPARISON: 09/09/2017 HISTORY: Follow up breast cancer CT DLP: 1321.4 mGycm CONTRAST: CT scan of the chest, abdomen and pelvis is performed with Oral Contrast and with IV Contrast, patien t injected with 100 mL of Omnipaque 300. CT Chest: LUNGS: The lungs are clear and free of infiltrate or atelectasis. Small focal area of postinflammator y change posterior sulcus on the right. No pulmonary nodule or mass is detected. No pleural effusio n or CT evidence of interstitial lung disease. MEDIASTINUM: Thoracic aorta is of normal caliber. The heart is not enlarged. No evidence for media stinal mass or adenopathy. HILAR STRUCTURES: Previously noted lymph node with necrosis left hilum persists although significantl y smaller in size and measures 1.5 x 1.0 cm versus 2.7 x 2.8 cm. Smaller subcentimeter lymph nodes ar e also noted in the region of the left hilum smaller than on prior examination. Right hilar lymph nod e measures 7.7 mm short axis versus a 9 mm previously. OTHER: Lumpectomy changes left breast. CONTRAST CT ABDOMEN AND PELVIS FINDINGS: LIVER/GB: No calcified gallstones. Ill-defined hypoattenuating hepatic lesions persist and appear t o be essentially unchanged with regards to overall number. Largest lesion is seen anterior segment ri ght hepatic lobe and measures 1.2 cm versus 1.7 cm. Biliary tree is of normal caliber. PANCREAS: No inflammation. No distinct mass. SPLEEN: No splenic enlargement. No lesion seen. ADRENALS: No nodule. No thickening. KIDNEYS/BLADDER: No hydronephrosis. No nephrolithiasis. No disctinct solid renal mass. Simple cyst upper pole left kidney measures 3.5 cm. BOWEL: Normal appendix. Normal bowel caliber. No inflammation. Moderate fecal stasis. GENITAL ORGANS: Hysterectomy changes identified. LYMPH NODES: No greater than 1cm abdominal or pelvic lymph nodes are appreciated. AORTA: No significant abnormality. OSSEOUS STRUCTURES: There is a new T12 lesion identified right pedicular region with small pathologic fracture component difficult to exclude. Minimal bony retropulsion suggested at 2.5 mm. Suspect new lytic lesion at the L3 vertebral body anteriorly. Suspect minimal bony metastases to the left iliac w ing. Sclerotic lesion in right supra-acetabular region. OTHER: No significant additional abnormality is seen. IMPRESSION: 1. Improved hilar adenopathy. 2. New osseous lesions as discussed above. 3. Loss of height with pathologic fracture component at T12 with minimal posterior retropulsion of ap proximately 2.5 mm. #4 hepatic lesions persist with the dominant lesion being slightly smaller in siz e. No new lesions are identified at this time.
--- NOTE | 2017-11-27 11:21 | ECHOF ---
Referral Reason:C50.412 Breast cancer Z01.818 Chemo exposure MEASUREMENTS -------- HEIGHT: 175.3 cm WEIGHT: 90.7 kg BP: IVSd: 1.2 cm (0.6 - 1.1) LVIDd: 4.7 cm (3.9 - 5.3) LVPWd: 1.1 cm (0.6 - 1.1) IVSs: 1.3 cm LVIDs: 4.1 cm LVPWs: 1.0 cm LA Diam: 3.3 cm (2.7 - 3.8) LAESV Index (A-L): 32.99 ml/m Ao Diam: 3.3 cm (2.0 - 3.7) AV Cusp: 2.0 cm (1.5 - 2.6) LA Diam: 3.5 cm (2.7 - 3.8) MV E Todd: 0.50 m/s MV DecT: 208 ms MV A Todd: 0.61 m/s MV E/A Ratio: 0.83 RAP: 5.00 mmHg RVSP: 20.18 mmHg FINDINGS -------- Sinus rhythm. This was a technically good study. LV size, wall thickness and systolic function are normal, with an EF greater than 55%. The left donnie tricular size is normal. The right ventricle is normal in size. LA is midly dilated 29-33ml/m2. The right atrial size is normal. The aortic valve is trileaflet, and appears structurally normal. No aortic stenosis or regurgitation. Mild mitral regurgitation is present. Mild tricuspid regurgitation present. There is no evidence of pulmonary hypertension. The right v entricular systolic pressure, as measured by Doppler, is 20.18mmHg. There is no pulmonic regurgitation present. The aortic root size is normal. CONCLUSIONS -------- 1. LV size, wall thickness and systolic function are normal, with an EF greater than 55%. 2. The left ventricular size is normal. 3. LA is midly dilated 29-33ml/m2. 4. The aortic valve is trileaflet, and appears structurally normal. No aortic stenosis or regurgitati on. 5. Mild mitral regurgitation is present. 6. Mild tricuspid regurgitation present. 7. There is no evidence of pulmonary hypertension. 8. The right ventricular systolic pressure, as measured by Doppler, is 20.18mmHg. 9. There is no pulmonic regurgitation present. 10. The aortic root size is normal. REGULATORY AUDITOR: Natasha Greco RDCS
== END | disposition home or self-care (01) ==
LOC: RADECHMAIN 13:03
PROVIDERS: ATTEND Internal Medicine Hematology & Oncology
DX: Z01.818 Encounter for other preprocedural examination (principal); C50.412 Malignant neoplasm of upper-outer quadrant of left female breast; I08.1 Rheumatic disorders of both mitral and tricuspid valves; M89.9 Disorder of bone, unspecified; M84.48XA Pathological fracture, other site, initial encounter for fracture; K76.9 Liver disease, unspecified; R59.0 Localized enlarged lymph nodes
CPT/HCPCS: 93306; 82565; 84520; 71260; 74177; Q9967; J1642